=== PATIENT | male | born 1995 | race Caucasian/White ===

== ENCOUNTER 2017-12-14 09:42 | Emergency (ER) | payer OTHER ==
[2017-12-14] MEDS ORDERED: KETOROLAC 60 MG/2 ML VIAL IM STA (09:48)
[2017-12-14] MEDS ORDERED: LIDOCAINE PATCH 5% TOP PRN (09:48)
[2017-12-14] MEDS ORDERED: CYCLOBENZAPRINE 10 MG TABLET PO STA (09:49)
--- NOTE | 2017-12-14 09:51 | ED Physician Documentation ---
History of Present Illness - Stated complaint Stated Complaint: BACK PAIN - Chief complaint Chief Complaint: Back Pain - Additonal information Additional information: hx from pt 22 y/o healthy young [place] male at work at [employer] and lifted something heavy his back hurt and developed spasm no numbness no weakness no abd pain no urinary incont 911 was called [place] no fever - well recently Review of Systems Constitutional: denies: Fever Cardiac: denies: Chest pain / pressure Respiratory: denies: Dyspnea GI: denies: Abdominal Pain : denies: Incontinent, Hematuria Musculoskeletal: reports: Back pain Neurologic: denies: Focal weakness, Numbness PD PAST MEDICAL HISTORY - Present Medications Home Medications: Ambulatory Orders Medication Instructions Recorded Confirmed Cyclobenzaprine [Flexeril] 10 mg PO TID PRN #20 tablet 12/14/17 Ibuprofen [Motrin] 400 mg PO Q6H PRN #30 tablet 12/14/17 Lidocaine Patch 5% [Lidoderm Patch] 1 each TOP DAILY PRN #10 patch 12/14/17 - Allergies Allergies/Adverse Reactions: Allergies Allergy/AdvReac Type Severity Reaction Status Date / Time No Known Drug Allergies Allergy Verified 12/14/17 09:49 PD ED PE NORMAL - Vitals Vital signs reviewed: Yes - Cardiac Cardiac: RRR - Respiratory Respiratory: No respiratory distress, Clear bilaterally - Abdomen Abdomen: Soft, Non tender, Other (no pulsatile mass) - Back Back: No spinal TTP, Other (diffuse lumbar soft tissue TTP and limited) - Neuro Neuro: Other (denies saddle anesthesia, nl sensation both legs, hip flexion, knee ext, foot dorsi plantar and great to ext 5/5, no clonus) Results - Vitals Vitals: Vital Signs - 24 hr 12/14/17 12/14/17 09:46 11:02 Temperature 36.6 C Heart Rate 56 L 65 Respiratory 18 16 Rate Blood Pressure 122/62 119/57 L O2 Saturation 96 97 Oxygen O2 Source Room air PD MEDICAL DECISION MAKING - Sepsis Event Vital Signs: Vital Signs - 24 hr 12/14/17 12/14/17 09:46 11:02 Temperature 36.6 C Heart Rate 56 L 65 Respiratory 18 16 Rate Blood Pressure 122/62 119/57 L O2 Saturation 96 97 Oxygen O2 Source Room air Departure - Departure Disposition: 01 Home, Self Care Clinical Impression: Low back strain Qualifiers: Encounter type: initial encounter Qualified Code(s): S39.012A - Strain of muscle, fascia and tendon of lower back, initial encounter Condition: Good Instructions: ED Low Back Pain Injury Follow-Up: [facility] [Provider Group] Prescriptions: Cyclobenzaprine [Flexeril] 10 mg PO TID PRN #20 tablet PRN Reason: Spasms Ibuprofen [Motrin] 400 mg PO Q6H PRN #30 tablet PRN Reason: Pain Lidocaine Patch 5% [Lidoderm Patch] 1 each TOP DAILY PRN #10 patch PRN Reason: Pain Comments: Follow up with your command for duty status - recommend no work today or tomorrow and no lifting or twisting for a week. Also no driving or handling weapons while taking the muscle relaxant Discharge Date/Time: 12/14/17 11:17
[2017-12-14] MEDS ORDERED: oxyCOD/ACETAMIN 5 MG/325 MG TABLET PO STA (10:42)
[2017-12-14 11:04] VITALS: BP 119/57
== END 2017-12-14 11:17 | disposition home or self-care (01) ==
LOC: ED 09:42
DX: S39.012A Strain of muscle, fascia and tendon of lower back, initial encounter (principal); X50.0XXA Overexertion from strenuous movement or load, initial encounter; Y92.139 Unspecified place military base as the place of occurrence of the external cause; Y99.1 Military activity
CPT/HCPCS: 96372; 99283; A9270